=== PATIENT | male | born 1950 | race Caucasian/White ===

== ENCOUNTER 2022-03-16 14:34 | Outpatient (CLI) | payer MEDICARE, OTHER, SELFPAY | END 2022-03-16 14:35 | disposition home or self-care (01) | PROVIDERS: PCP Family Medicine; Visit Provider Family Medicine | DX: M17.12 Unilateral primary osteoarthritis, left knee (principal); M25.562 Pain in left knee | CPT/HCPCS: 64454 ==

== ENCOUNTER 2022-04-02 20:27 | Outpatient (REF) | payer MEDICARE, OTHER, SELFPAY ==
[2022-04-02 21:22] LABS: SARS PCR* Negative SARS-CoV-2 (Negative)
== END 2022-04-02 20:28 | disposition home or self-care (01) ==
LOC: NPINS 20:27
PROVIDERS: PCP Family Medicine; Visit Provider Family Medicine
DX: Z20.822 Contact with and (suspected) exposure to COVID-19 (principal)
CPT/HCPCS: 87635

== ENCOUNTER 2022-04-06 12:36 | Outpatient (CLI) | payer MEDICARE, OTHER, SELFPAY | END 2022-04-06 12:37 | disposition home or self-care (01) | PROVIDERS: PCP Family Medicine; Visit Provider Family Medicine | DX: M17.12 Unilateral primary osteoarthritis, left knee (principal); G89.29 Other chronic pain; M25.562 Pain in left knee | CPT/HCPCS: 64624; J2250; J3010 ==